=== PATIENT | female | born 1965 | race Caucasian/White ===

== ENCOUNTER 2022-05-07 06:42 | Day surgery (SDC) | payer OTHER, SELFPAY ==
[2022-05-07] VITALS (7 sets, daily range): BP systolic 124–158; BP diastolic 80–100; PULSE 63–98; RESP 16–18; TEMP 36.6–37.3; O2SAT 92–98; BMI 28.4
--- NOTE | 2022-05-07 06:54 | EKG12_ITS ---
Test Reason : PRE OP Blood Pressure : / mmHG Vent. Rate : 065 BPM Atrial Rate : 065 BPM P-R Int : 176 ms QRS Dur : 074 ms QT Int : 412 ms P-R-T Axes : 057 001 030 degrees QTc Int : 428 ms Normal sinus rhythm Normal ECG No previous ECGs available Confirmed by TRINA AMAYA, GISSELLE ([id number]), marketing editor TAYLOR GARDNER ([id number]) on 05/11/2022 8:23:47 AM Referred By: Brandyn Beatty Confirmed By:AMOS MENA MD
--- NOTE | 2022-05-07 07:04 | PCM.HP.BLA ---
History and Physical Date of Admission: 05/07/22 Chief complaint: Stress urinary incontinence History present illness: 57-year-old arrives for transvaginal tape, cystoscopy, possible anterior repair. No medical changes since last seen. 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 Allergies: Codeine, Levaquin, Zithromax, Terramycin, Imitrex Social history: Former smoker, denies alcohol or drug use Family history: Denies a history of DVT or PE Review of systems: Besides above pertinent positives a full review of systems was performed and found to be negative Physical exam: Vitals: Pending General: Normal-appearing no acute distress HEENT: Normocephalic/atraumatic no cervical lymphadenopathy Cardiac/respiratory: No use accessory muscles, nonlabored breathing Abdomen: Soft, nontender, nondistended Extremities: No peripheral edema normal peripheral pulses Psych: Normal affect normal demeanor nonpressured speech Assessment plan: 57-year-old for transvaginal tape, cystoscopy, possible anterior repair risk benefits alternatives discussed. All questions answered and consent signed
[2022-05-07] MEDS: Lactated Ringers 1,000 ML 15 ML IV ×2 (07:54→10:27)
[2022-05-07 08:06] LABS: Anion Gap 11 (5-15); BUN 18 mg/dL (7-18); BUN/Creat Ratio 20.7 RATIO (10-20); Calcium,Total 9.1 mg/dL (8.5-10.1); Chloride 105 mmol/L (98-107); Creatinine, Serum 0.87 mg/dL (0.55-1.02); EST Glomerular Filtration Rate 71 mL/min (>60); Est Glom Filt Rate - Afr Amer 86 mL/min (>60); Estimated Creatinine Clearance 50.01 ml/min; Glucose 95 mg/dL (74-106); Potassium 3.7 mmol/L (3.5-5.1); Sodium Level 142 mmol/L (136-145)
[2022-05-07] MEDS: Cefotetan 2 GM in 0.9% NS 100 ML IV (08:56)
[2022-05-07] MEDS: Lidocaine 1% /Epi 1:100 (20ml) 20 ML Vial (09:02)
--- NOTE | 2022-05-07 10:12 | DCINST_ITS ---
Discharge Instructions Diet Discharge Diet: No restrictions Activity Discharge Activity: May Drive, May Shower and - (no tub baths for 2 weeks) May resume sexual activity in: 4-6 weeks Lifting Restrictions: no heavy lifiting over 25 pounds for 2 weeks Dressing / Incision Call your doctor if your incision/area has: Continuous Slow Oozing and Foul Smelling Discharge Call your doctor if you observe: Fever of 101 or Higher, Shortness of breath and Chest pain Follow Up Care Please Follow Up With: Brandyn Beatty MD When: 2 weeks post op Test Results: Test results from this visit will be discussed in further detail at your follow- up appointment, if applicable. Discharge Plan Admission Attending Provider: Brandyn Beatty Primary Care Provider: Han Wynn Discharge Orders/Prescriptions Prescriptions: No Action cetirizine [Zyrtec] 5 mg Tablet 5 mg PO DAILY fluconazole 150 mg tablet 150 mg PO QHS aspirin [Aspir-81] 81 mg Tablet,Delayed Release (Dr/Ec) 81 mg PO DAILY omeprazole 20 mg capsule,delayed release(DR/EC) 20 mg PO QHS Label Comments: TAKE 1 CAPSULE BY MOUTH ONCE DAILY estradiol 0.5 mg tablet 0.5 mg PO QHS lisinopril-hydrochlorothiazide 10-12.5 mg tablet 10 - 12.5 tab PO DAILY Label Comments: TAKE 1 TABLET BY MOUTH ONCE DAILY docusate sodium 100 mg Tablet 100 mg PO DAILY progesterone micronized 100 mg capsule 100 mg PO QHS Other Ambulatory Orders: 12 Lead EKG (Routine) Timeframe: 20220507 Location: None Selected Ordered By: Dr. Kip Peterson Referrals / Follow Up: Han Wynn MD [Primary Care Provider] - Disposition Disposition (needs filled in before D/C Order can be placed): Home, Self Care
--- NOTE | 2022-05-07 10:13 | PCM.OPRPT ---
Report of Operation Date of Procedure: 05/07/22 Pre-Operative Diagnosis: Stress urinary incontinence, bladder prolapse Post-Operative Diagnosis: Stress urinary incontinence, bladder prolapse Surgery/Procedure Performed:: Anterior colporrhaphy, transvaginal tape, cystoscopy Description of Surgical Findings:: Surgeon: Brandyn Beatty MD Anesthesia: General EBL: 25 cc Urine output: 600 cc IV fluids: 1000 cc Complications: None Specimen: None Findings: Grade 2 cystocele, negative rectocele. Post anterior colporrhaphy cystoscopy performed and no pathology noted and no bladder defects. Post transvaginal tape cystoscopy performed no mesh noted and no pathology noted. Bilateral ureteral jets noted. TVT exact mesh was used Consent: Patient with stress urinary incontinence and bladder prolapse elects for anterior colporrhaphy transvaginal tape cystoscopy. Patient understands risk of the procedure include but are not limited to visceral or vascular injury, prolonged hospitalization, blood loss need for transfusion, reoperation. Patient educated on mesh complications. Patient state understanding and wished to proceed. All questions were answered and consent was signed. Procedure: Patient brought back to the OR where general anesthesia was found to be adequate. 2 g of cefotetan were given for infection prophylaxis. Patient was prepared and draped in a dorsolithotomy position with yellowfin stirrups. A weighted speculum was placed in the posterior aspect of the vagina and the above findings were noted. Anterior colporrhaphy performed first. Allis clamps used to identify bladder prolapse. 1% lidocaine with epinephrine injected at the vesicovaginal junction for Aurora dissection and hemostasis. Midline incision made with scalpel from Allis to Allis. Using blunt dissection and sharp dissection vesicovaginal junction dissected. Using 0 Vicryl suture plication sutures were placed. Good hemostasis was noted. Cystoscopy was performed and above findings were noted, no pathology no sutures. Excess vaginal tissue was removed with Metzenbaum scissors. Vaginal mucosa reapproximated with 0 Vicryl suture in a continuous running locked fashion. Next transvaginal tape was performed. Vera catheter was inserted. 1% lidocaine with epinephrine was injected at the vaginal urethral junction, for Aurora dissection and hemostasis. 1-1/2 cm incision made 1 cm cephalad to the urethra with a scalpel. Using Metzenbaum scissors and blunt dissection the periurethral lateral retropubic dissection was performed in order to fit the trochars. Suprapubic markings were made 2 cm lateral to the midline. Using Vera stylette the bladder was displaced to the contralateral side of the lateral periurethral trocar insertion. Using TVT exact mesh left trocar inserted at lateral periurethral dissection site, while the bladder was being deviated to the patient's right, and trocar was guided along the retropubic space toward the predetermined suprapubic marker. Marker perforated. In a similar fashion the right trocar was inserted at the right lateral periurethral dissection, meanwhile the bladder was deviated to the patient's left, and the trocar was guided along the retropubic space toward the predetermined marker. Right marker was perforated. Cystoscopy was performed and above findings were noted, no mesh was noted, no bladder defects. Mesh was appropriately tightened along the urethra. Trocar sheaths were removed. Mesh was cut at skin level and suprapubic perforations were closed with skin glue. Good hemostasis was noted. Vaginal mucosa was reapproximated in a continuous running locked fashion. Good hemostasis was noted. All counts were correct x2. Patient tolerated the procedure well and was brought to recovery in stable condition.
[2022-05-07] MEDS: Ketorolac 30 MG/ML Syringe IV (10:34)
== END 2022-05-07 12:43 | disposition home or self-care (01) ==
LOC: SDC 06:45 → AC 06:47
PROVIDERS: Anesthesiology; PCP Family Medicine; Referring Provider Obstetrics & Gynecology; Visit Provider Obstetrics & Gynecology
PROC: (CPT 57260; principal; 2022-05-07 08:25)
DX: N39.3 Stress incontinence (female) (male) (principal); N81.11 Cystocele, midline; I10 Essential (primary) hypertension; M19.90 Unspecified osteoarthritis, unspecified site; F32.A Depression, unspecified; K21.9 Gastro-esophageal reflux disease without esophagitis; H91.90 Unspecified hearing loss, unspecified ear; Z78.0 Asymptomatic menopausal state; Z79.899 Other long term (current) drug therapy; Z79.82 Long term (current) use of aspirin; Z87.891 Personal history of nicotine dependence
CPT/HCPCS: 57240; 57288; 00942; 80048; 93005; J7120; J2405